=== PATIENT | male | born 1975 | race Caucasian/White ===

== ENCOUNTER 2023-01-18 13:03 | Day surgery (SDC) | payer BC, SELFPAY ==
[2023-01-18] VITALS (8 sets, daily range): BP systolic 132–144; BP diastolic 72–87; PULSE 70–89; RESP 14–18; TEMP 36.1–36.6; O2SAT 97–99; BMI 33.9
--- NOTE | 2023-01-18 14:57 | W.PM.ENTPROC ---
Procedure Note Date of procedure: 01/18/23 Procedure: Preoperative diagnosis suspicious lesions superior left external helical rim. Suspicious for keratoacanthoma or low-grade squamous cell carcinoma Postoperative diagnosis same pathology pending Wedge excision dimensions 1.5 x 1.5 cm left external ear. The patient was brought to the operating room prepped and draped usual fashion. The lesion was identified in the area surrounding it injected with 1% lidocaine 1 100,000 adrenaline. A wedge excision was performed removing the lesion with 2 mm margins. Separate superior and inferior margins were sent to pathology. Marker was applied to the superior aspect of the original excision. Bleeding was controlled with pinpoint electrocautery. There was except I did extensive undermining and removed some of the medial cartilage. The cartilage was then approximated with interrupted 3-0 chromic suture. The skin was approximated with in to ruptured and running 5 0 plain gut. Great care was taken to make the call rim appear normal. An external dressing consisting of a Band-Aid was applied. The patient procedure well was taken recovery in satisfactory condition. Blood loss was 10 mL. Surgeon: Vipul Gutierrez MD
== END 2023-01-18 15:02 | disposition home or self-care (01) ==
PROVIDERS: PCP Family Medicine; Visit Provider Otolaryngology
PROC: (CPT 11643; principal; 2023-01-18 14:15)
DX: C44.229 Squamous cell carcinoma of skin of left ear and external auricular canal (principal)
CPT/HCPCS: 11643; 88305